=== PATIENT | male | born 1985 | race Caucasian/White ===

== ENCOUNTER 2016-11-29 13:00 | Inpatient (IN) | payer OTHER ==
--- NOTE | ~2016-11-29 | DS ---
Unit #: [id number] #: [id number] [facility]: [facility] [id number] [facility] [address] [place] [address] [id number] MR#: [id number] NAME: ZACH FORD ROOM: P174 Age: 31 Sex: M Admission Date: 11/29/2016 : 1985 Discharge Date: 12/02/2016 Attending Physician: Martha Cruz M.D. Primary Care Physician: Generic Doctor Not In System DISCHARGE SUMMARY IDENTIFYING DATA Mr. Ford is a 31-year-old single white male, who was self-referred to the hospital on voluntary basis. HISTORY OF PRESENT ILLNESS Please see initial psychiatric evaluation for details. PAST PSYCHIATRIC HISTORY Please see initial psychiatric evaluation for details. PAST MEDICAL HISTORY Please see the initial psychiatric evaluation for details. HOSPITAL COURSE The patient was admitted to the Adult Chemical Dependency Unit at [facility] ricarda Gonzáles and oriented to the hospital environment, and treated with routine p.r.n. medications and then she was started in the alcohol detox protocol with Ativan and was closely monitored. He was compliant with the treatment recommendations and he was seen to be polite and pleasant and was taking medications and tolerating them fairly well and had no agitation or aggression, hostility or complications and his detox was noticed. He was able to come out of the detox without any complications and on the morning of December 02, 2016, he was upbeat and had a positive body language and when asked how he was doing he stated "I'm living the dream" but he stated that he is feeling fabulous and would like to get out of here and he stated that he had to work tonight and was denying any detox symptoms and also denying any depression and suicidal thoughts and is not meeting criteria for further inpatient psychiatric hospitalization and as such it was decided that he would encouraged to continue treatment on outpatient basis. DISCHARGE DIAGNOSES [place] I Alcohol dependence, moderate, in no acute withdrawal. Alcohol-induced mood disorder. [place] II [place] III None. [place] IV Moderate psychosocial stressors. [place] V DISCHARGE MEDICATIONS None. Unit #: [id number] #: [id number] Patient: ZACH FORD CONDITION AT DISCHARGE Stable. PROGNOSIS Fair. Dictated by... Misty Raymond/lilia TD: 12/03/2016 09:44 JOB #: [id number] DISCHARGE SUMMARY Page 1 of 1 X Martha Cruz MD DISCHARGE SUMMARY
--- NOTE | ~2016-11-29 | PA ---
Unit #: [id number] #: [id number] Patient: ZACH WILLAMS [id number] [facility] [address] [place] [address] [id number] MR#: [id number] NAME: ZACH WILLAMS ROOM: P174 Age: 31 Sex: M Admission Date: 11/29/2016 : 1985 Date of Assessment: 11/30/2016 Attending Physician: Martha Cruz M.D. Admitting Physician: Martha Cruz M.D. Primary Care Physician: Jerald Doctor Not In System PSYCHIATRIC ASSESSMENT DATE OF SERVICE 11/30/2016. IDENTIFYING DATA Mr. Willams is a 31-year-old single white male, who is a resident of [place], [place], and was self-referred to the hospital on a voluntary basis. CHIEF COMPLAINT "I've long history of alcohol abuse." HISTORY OF PRESENT ILLNESS Mr. Willams is a 31-year-old white male with long history of alcohol dependence, who presented to the hospital on a voluntary basis with a blood alcohol level of 0.036. Reports history of alcohol abuse and has been detoxing and reports that he has been drinking heavily for approximately 12 years and reports taking a break from 04/2016 to 08/2016 and started drinking again. He reports that he has been consuming 4 bottles of wine a day since 11/20/2016 and reports last consumption of alcohol approximately 3 in the morning on the day of coming to the hospital and has history significant withdrawal symptoms and does report increasing depression, anxiety, irritability, restlessness, but denies any suicidal ideations, intent, or plan. SUBSTANCE ABUSE HISTORY The patient reports alcohol to be his drug of choice and has been drinking regularly and heavily since he was 19 years old. He denies any other drug abuse. PAST PSYCHIATRIC HISTORY The patient has not had any prior inpatient or outpatient psychiatric treatment. Review of the medical records indicate that currently he is not active in any treatment program, and is not seeing a psychiatrist, and is not taking any psychotropic medications. PAST MEDICAL HISTORY Hypertension. ALLERGIES Rocephin, lisinopril, Sudafed. PERSONAL AND SOCIAL HISTORY A 31-year-old white male, who reports that he is single, unemployed, and Unit #: [id number] #: [id number] Patient: ZACH WILLAMS lives with a roommate and has poor social support system. MENTAL STATUS EXAMINATION Young white male who was casually dressed with fair personal hygiene, appears to be in no acute distress or discomfort. He was awake and alert on interaction with intact orientation to time, place, and person. His mood was anxious with a congruent affect. His speech was slow and restricted in content. His thought processes were disorganized with some looseness of associations and suicidal ideations. His insight and judgment remain significantly impaired. DIAGNOSTIC IMPRESSION Psychiatric: Alcohol dependence, moderate and acute withdrawals; alcohol-induced mood disorder. Medical: None. Stressors: Moderate psychosocial stressors. TREATMENT PLAN 1. The patient has a history of substance abuse and mood disorder and has been decompensating and will need inpatient hospitalization for detoxification, safety, and stabilization. We will start him back on his home medications. We will adjust the medications and monitor response. 2. Supportive therapy was provided to the patient. 3. Safe, structured, and nourishing environment will be provided. ESTIMATED LENGTH OF STAY 5 to 7 days. ABILITY TO HELP SELF Limited. WILLINGNESS TO HELP SELF The patient appears to be willing to help self. STRENGTHS 1. Communicative. 2. Cooperative. PROBLEMS 1. Chronic dysphoric symptoms. 2. Chronic chemical dependency. 3. Poor social support system. DISCHARGE CRITERIA This will be contingent upon the patient's ability to show resolution of his depression and anxiety and his ability to stay safe and sober, particularly after discharge from the hospital. Dictated by... Martha Cruz M.D. FADIA/jade TD: 11/30/2016 06:51 JOB #: [id number] Unit #: [id number] #: [id number] Patient: ZACH WILLAMS PSYCHIATRIC ASSESSMENT Page 1 of 1 X Martha Cruz MD X PSYCHIATRIC ASSESSMENT
--- NOTE | ~2016-11-29 | HP ---
Unit #: [id number] #: [id number] Patient: ZACH WILLAMS [id number] [place] [address] [id number] I MR#: [id number] NAME: ZACH WILLAMS ROOM: P174 Age: 31 Sex: M Admission Date: 11/29/2016 : 1985 Attending Physician: Martha Cruz M.D. Admitting Physician: Martha Cruz M.D. Primary Care Physician: Generic Doctor Not In System HISTORY AND PHYSICAL HISTORY OF PRESENT ILLNESS Zach is a 31 year old admitted to [facility] because of his abuse of alcohol. PAST MEDICAL HISTORY Long history of alcohol abuse. PAST SURGICAL HISTORY 1. Right arm. 2. Low back. ALLERGIES Lisinopril. SOCIAL HISTORY He does not smoke. Drinks at least a bottle of wine on a daily basis. Denies illicit drug use. FAMILY HISTORY Medically noncontributory. REVIEW OF SYSTEMS CONSTITUTIONAL: No fever or chills. HEENT: Denies any sore throat, ear pain or runny nose. CARDIOVASCULAR: Denies chest pain, irregular heart rhythm or palpitations. CHEST: Denies shortness of breath or cough. No hemoptysis. GASTROINTESTINAL: Denies nausea, vomiting, diarrhea or chronic constipation. ENDOCRINE: Denies history of increased thirst or urination. No recent significant weight loss or gain. GENITOURINARY: Denies dysuria, frequency, or hematuria. SKIN: Denies any rashes. HEMATOLOGIC: Denies history of increased bleeding or bruising. MUSCULOSKELETAL: Denies any hot, swollen joints. No generalized muscle pain. NEUROLOGIC: Denies problems with vision or speech. No frequent, severe headaches. No numbness, tingling or weakness in any extremities. Denies loss of bladder or bowel control. CURRENT MEDICATIONS Detox protocol. PHYSICAL EXAMINATION GENERAL: Alert, well-nourished, in no apparent distress. Unit #: [id number] #: [id number] Patient: ZACH WILLAMS VITAL SIGNS: Blood pressure 134/94, heart rate 70, respirations 16, temperature 98.6. WEIGHT: 170. HEIGHT: 5 feet 8 inches. SKIN: Warm and dry without rash or lesion. HEENT: Normocephalic. TMs not viewed. Oral and nasal passages clear. Conjunctivae clear. PERRLA. EOMs intact. NECK: Supple without lymphadenopathy or thyromegaly. HEART: Regular rate and rhythm without murmur. LUNGS: Clear. ABDOMEN: Soft, nontender. : Not done. EXTREMITIES: No evidence of cyanosis, clubbing or edema. Moves all without focal deficit. NEUROLOGICAL: Grossly within normal limits. Cranial Nerves: II: Visual caba are intact. III, IV AND : Extraocular movements are intact. Pupils are equal, round and reactive to light. V: Facial sensation is grossly normal. VII: Facial movements and expression are normal. VIII: Auditory acuity grossly intact. IX, X: Uvula is midline. Phonation is normal. XI: Patient shrugs shoulders and turns head normally. XII: Tongue protrudes in the midline. Sensory and Motor Function: Sensory and motor sensation is grossly normal. Motor: moves all extremities well. Coordination: Gait is normal. Deep Tendon Reflexes: Intact. IMPRESSION Psychiatric admission. RECOMMENDATIONS PSYCHIATRIC: Per psychiatrist. MEDICAL: See no contraindications to participate in facility's activities. MEDICAL PROGNOSIS Good. MEDICAL CONDITION Stable. Dictated by... Sarika Lanier P.A.-C. for Misty June/otto TD: 11/30/2016 17:33 JOB #: [id number] Unit #: [id number] #: [id number] Patient: ZACH WILLAMS HISTORY AND PHYSICAL Page 1 of 1 X Sarika Lanier HISTORY AND PHYSICAL
--- NOTE | ~2016-11-29 | PN ---
Unit #: [id number] #: [id number] Patient: ZACH WILLAMS [id number] [facility] [address] [place] [address] [id number] MR#: [id number] NAME: ZACH WILLAMS ROOM: 74 Age: 31 Sex: M Admission Date: 11/29/2016 : 1985 Attending Physician: Martha Cruz M.D. Admitting Physician: Martha Cruz M.D. Primary Care Physician: Jerald Doctor Not In System [facility] PROGRESS NOTES DATE OF SERVICE 12/01/2016 DISCUSSION Mr. Willams is a 31-year-old white male who was seen today. Chart was reviewed and case was discussed with the staff. She has been anxious and withdrawn though has not shown any agitation, irritability, or behavioral problems and has been cooperative with the treatment recommendations and has been taking the medications and tolerating them fairly well with no reported side effects. MENTAL STATUS EXAMINATION Young white male who is casually dressed with fair personal hygiene and appears to be in no acute distress or discomfort. The patient was awake and alert on interaction with intact orientation. His mood is anxious with congruent affect. He denies any suicidal or homicidal ideations and also denies any auditory or visual hallucinations. His insight and judgment remain slightly impaired. TREATMENT PLAN 1. We will continue him on his current medications and treatment protocol. We will monitor his response to the medications and make further adjustments as needed. 2. We will continue to follow up. Dictated by... Martha Cruz M.D. IAA/montyg TD: 12/01/2016 08:32 JOB #: [id number] Unit #: [id number] #: [id number] Patient: ZACH WILLAMS [facility] PROGRESS NOTES Page 1 of 1 X Martha Cruz MD PROGRESS NOTE
[2016-11-30 09:59] LABS: BASOPHIL% 0.7 % (0-2.5); EOSINOPHIL# 0.3 X10e3 (0-0.7); HEMATOCRIT 44.2 % (38.0-50.0); LYMPHOCYTE% 32.7 % (17.0-45.0); MEAN CELL VOLUME 88.4 FL (83-96); MEAN CORPUSCULAR HEMOGLOBIN 29.9 PG (28-34); MEAN CORPUSCULAR HGB CONC 33.8 g/dL (30-36); MEAN PLATELET VOLUME 7.9 FL (6.5-11.5); MONOCYTE# 0.8 X10e3 (0-1.0); NEUTROPHIL% 48.6 % (40-75); PLATELET COUNT 115 X10e3 (140-420); RED CELL DISTRIBUTION WIDTH 14.2 % (11.0-15.5); WHITE BLOOD COUNT 6.3 X10e3 (4.0-10.5)
[2016-11-30 10:03] LABS: DIFF IND NO
[2016-11-30 10:08] LABS: THYROID STIMULATING HORMONE 1.52 uIU/ml (0.34-5.60)
[2016-11-30 10:15] LABS: ALBUMIN SERUM 4.2 g/dL (3.5-5.0); BILIRUBIN,TOTAL 1.6 mg/dL (0.2-2.0); BUN/CREATININE RATIO 11.25; CALCIUM SERUM 9.7 mg/dL (8.4-10.2); CREATININE SERUM 0.8 mg/dL (0.6-1.4); FREE THYROXIN (T4) 0.81 ng/dL (0.58-1.64); GLOM FILT RATE Estimated 118.2 mL/min (>60); POTASSIUM 3.9 mmol/L (3.5-5.1); PROTEIN TOTAL SERUM 7.2 g/dL (6.0-8.3)
[2016-12-01 10:01] LABS: URINE APPEARANCE CLEAR; URINE BILIRUBIN NEG (NEG); URINE BLOOD NEG (NEG); URINE COLOR YELLOW; URINE GLUCOSE NEG (NEG); URINE KETONE NEG (NEG); URINE LEUKOCYTE ESTERASE NEG (NEG); URINE NITRATE NEG (NEG); URINE PROTEIN NEG (NEG); URINE SPECIFIC GRAVITY 1.006 (1.003-1.035); URINE UROBILINOGEN 0.2 MG/DL (NEG)
[2016-12-01 12:36] LABS: AMPHETAMINE NEG (NEG); BARBITURATES NEG (NEG); BENZODIAZEPINES NEG (NEG); COCAINE NEG (NEG); MARIJUANA NEG (NEG); OPIATES NEG (NEG); TRICYCLIC ANTIDEPRESSANTS NEG (NEG); U METHADONE NEG (NEG)
== END 2016-12-02 09:40 | disposition home or self-care (01) | DRG 897 ==
LOC: EDBD 17:19 → P1E 17:19
PROVIDERS: Psychiatry & Neurology Psychiatry
PROC: HZ2ZZZZ Detoxification Services for Substance Abuse Treatment (ICD-10-PCS; principal; 2016-11-30)
DX: F10.239 Alcohol dependence with withdrawal, unspecified (principal); F10.24 Alcohol dependence with alcohol-induced mood disorder
CPT/HCPCS: 80053; 80307; 81003; 84439; 84443; 85025; 86592